=== PATIENT | female | born 1960 | race Caucasian/White ===

== ENCOUNTER 2016-07-27 12:34 | Outpatient (CLI) | payer OTHER ==
--- NOTE | 2016-07-29 17:32 | DIAGNOSTIC IMAGING REPORT ---
REFERRING PHYSICIAN/PROVIDER: Adrianne Kellogg MD ATTENDING PHYSICIAN/PROVIDER: Dr. Noel CONSULTING CLERICAL ADMINISTRATIVE ASSISTANT: Adrianne Kellogg MD PROCEDURE PERFORMED: Pharmacologic stress test with myocardial perfusion imaging and quantitative gated SPECT to evaluate wall motion and left ventricular systolic function. INDICATION: OSORIO (DYSPNEA ON EXERTION) RADIOPHARMACEUTICAL: Stress dose 29 mCi of technetium 99 Rest dose 31 mCi of technetium 99 sestamibi PROCEDURAL DETAILS: Following informed consent the patient walked on Jason protocol for 4 minutes and 35 seconds. She reached 6.5 minutes. The patient had appropriate heart rate and blood pressure response. Study was terminated due to fatigue. There were no significant arrhythmias during the stress test. The patient had <[address] depressions. ECG DATA: No significant ST changes during physical activity; resting EKG is normal. RAW DATA: Normal myocardial tracer uptake. Lung heart ratio appears grossly normal. T.i.d. is normal at 0.75. QUANTITATIVE GATED SPECT: Rest ejection fraction is 52% with subtle focal wall motion abnormalities in the mid to inferior and mid inferior lateral segments. At peak stress ejection fraction is 70%. No focal wall motion abnormalities seen. MYOCARDIAL PERFUSION STUDY: There is a medium size moderate intensity fixed basal to the distal inferior perfusion defect. It is completely normalized by placing the patient in prone position. Therefore it is most consistent with diaphragmatic attenuation artifact. IMPRESSION: 1. Reassuring stress test. There is no evidence of ischemia or prior infarct. Diaphragmatic attenuation artifact is present. EF is 70% at peak stress and 52% at rest with subtle inferior wall motion abnormalities (most likely artifact related). There is no prior stress test available for comparison.
== END 2016-07-27 23:00 ==
LOC: RT SRH 12:34
DX: R06.09 Other forms of dyspnea (principal)